=== PATIENT | female | born 1990 | race Caucasian/White ===

== ENCOUNTER 2019-02-04 13:57 | Emergency (ER) | payer OTHER ==
[~2019-02-04] VITALS: Ht 172.7 cm; Wt 70.8 kg
[2019-02-04 14:39] LABS: ABSOLUTE NEUTROPHILS 2.9 thou/uL (1.4-8.2); BASOPHILS 0.5 % (0.0-2.0); EOSINOPHILS 3.1 % (0.0-3.0); HEMATOCRIT 38.1 % (37.0-47.0); HEMOGLOBIN 12.5 gm/dL (12.0-15.0); LYMPHOCYTES 31.5 % (24.0-44.0); MCH 26.4 pg (26.0-34.0); MCHC 32.8 g/dL (28.0-37.0); MCV 80.6 fL (80.0-100.0); MONOCYTES 8.1 % (1.0-8.0); PLATELET COUNT 256 thou/uL (150-400); POLYS 56.8 % (36.0-66.0); RBC 4.72 mil/uL (4.20-5.00); RDW 16.7 % (10.5-14.5)
[2019-02-04 14:51] LABS: CALCIUM 9.8 mg/dL (8.5-10.1); CREATININE 0.7 mg/dL (0.6-1.0); POTASSIUM 3.3 mmol/L (3.5-5.1)
[2019-02-04 14:57] LABS: ALBUMIN 4.5 g/dL (3.4-5.0); TOTAL BILIRUBIN 0.4 mg/dL (<0.1-1.0); TOTAL PROTEIN 9.4 g/dL (6.4-8.2)
[2019-02-04 14:59] LABS: URINE BILIRUBIN NEGATIVE (Negative); URINE BLOOD NEGATIVE (Negative); URINE CLARITY CLEAR; URINE COLOR YELLOW; URINE GLUCOSE-RANDOM* NEGATIVE (Negative); URINE KETONES NEGATIVE (Negative); URINE LEUKOCYTES-REFLEX NEGATIVE (Negative); URINE NITRITE-REFLEX NEGATIVE (Negative); URINE PROTEIN (DIPSTICK) NEGATIVE (Negative); URINE SPECIFIC GRAVITY 1.025 (1.005-1.035); URINE UROBILINOGEN 0.2 E.U./dl (0.2-1.0)
[2019-02-04] MEDS ORDERED: IBUPROFEN 600600 M1 PO (15:28)
[2019-02-04] MEDS ORDERED: CLARITIN-D 121 EAC1 PO (15:28)
[2019-02-04] MEDS ORDERED: TESSALON PERLE100 MG PO (15:28)
[2019-02-04 15:43] VITALS: BP 105/66
== END 2019-02-04 16:49 | disposition home or self-care (01) ==
LOC: ER 13:57
PROVIDERS: Nurse Practitioner Family
DX: B34.9 Viral infection, unspecified (principal); R07.89 Other chest pain; R11.10 Vomiting, unspecified; E11.9 Type 2 diabetes mellitus without complications